=== PATIENT | male | born 1970 | race Two or more races ===

== ENCOUNTER 2017-10-03 01:57 | Emergency (ER) | payer MEDICAID, OTHER ==
[~2017-10-03] VITALS: Ht 157.5 cm; Wt 68.9 kg
[2017-10-03 02:00] VITALS: BP 133/98
--- NOTE | 2017-10-03 02:30 | NUR ---
CALLED RT RE: BREATHING TX.
[2017-10-03] MEDS ORDERED: predniSONE 20 MG TABLET ONE (02:31)
--- NOTE | 2017-10-03 02:33 | NUR ---
PT REC'D MEDICATION ORDERED.
[2017-10-03] MEDS: ALBUTEROL FS 2.5 MG/3 ML VIAL.NEB NEB ONE (02:36)
[2017-10-03] MEDS: IPRATROPIUM NEB FS 0.5 MG/2.5 ML AMPUL.NEB NEB ONE (02:36)
[2017-10-03] MEDS ORDERED: ALBUTEROL FS 2.5 MG/3 ML VIAL.NEB ONE (02:37)
[2017-10-03] MEDS ORDERED: IPRATROPIUM NEB FS 0.5 MG/2.5 ML AMPUL.NEB ONE (02:37)
[2017-10-03] MEDS: predniSONE 20 MG TABLET PO ONE (02:39)
--- NOTE | 2017-10-03 02:40 | NUR ---
BREATHING TX STARTED.
== END 2017-10-03 03:06 | disposition home or self-care (01) ==
LOC: ER 01:59
DX: J45.901 Unspecified asthma with (acute) exacerbation (principal); F10.129 Alcohol abuse with intoxication, unspecified; F17.200 Nicotine dependence, unspecified, uncomplicated
CPT/HCPCS: 94640; 99283; A4606; J7512; Z7610